=== PATIENT | female | born 1995 | race African-American/Black ===

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

== ENCOUNTER 2017-02-07 10:50 | Emergency (ER) | payer BC, OTHER ==
[~2017-02-07 10:50] MED LIST changes: +NO MEDICATIONS
[2017-02-07] MEDS ORDERED: AMOXICILLIN (10:52)
== END 2017-02-07 11:24 | disposition home or self-care (01) ==
LOC: SED 10:50
DX: H65.93 Unspecified nonsuppurative otitis media, bilateral (principal); J45.909 Unspecified asthma, uncomplicated; Z91.010 Allergy to peanuts
CPT/HCPCS: 99282